=== PATIENT | male | born 1950 ===

== ENCOUNTER → 2018-08-17 | Outpatient (CLI) | payer MEDICAID, MEDICARE ==
[~2018-08-17] MED LIST: LIDOCAINE 1% (MPF) 5 ML VIAL SC ONE
== END | disposition home or self-care (01) ==
LOC: RAD 13:54
PROVIDERS: ATTEND Internal Medicine
DX: N41.1 Chronic prostatitis (principal)
CPT/HCPCS: 36569; 71045; 76937